=== PATIENT | female | born 1970 | race Caucasian/White ===

== ENCOUNTER 2019-11-23 11:07 | Emergency (ER) | payer MEDICAID ==
[~2019-11-23] VITALS: Ht 157.5 cm; Wt 83.0 kg
[2019-11-23] MEDS ORDERED: POLYVINYL ALCOHOL OPHTH DROPS 15ML LEFTEYE STA (11:54)
[2019-11-23] MEDS ORDERED: PREDNISONE 20MG TABLET PO ONE (12:00)
[2019-11-23] MEDS ORDERED: VALACYCLOVIR HCL 500MG TABLET PO STA (12:08)
[2019-11-23] MEDS ORDERED: IBUPROFEN 600MG TABLET PO ONE (12:15)
[2019-11-23 12:17] LABS: BASOPHILS % 0.9 % (0.0-2.0); EOSINOPHILS % 1.5 % (0.0-5.0); HEMATOCRIT. 42.5 % (36.0-48.0); HEMOGLOBIN. 14.5 g/dL (12.0-16.0); LYMPHOCYTES % 14.4 % (20.0-50.0); MEAN CORPUSCULAR HEMOGLOBIN 28.2 pg (28.0-32.0); MEAN CORPUSCULAR VOLUME 82.5 fL (81.0-99.0); MEAN PLATELET VOLUME 8.9 fl (7.4-10.4); MONOCYTES % 6.1 % (2.0-8.0); NEUTROPHILS % 77.1 % (40.0-76.0); PLATELET 273 x1000/uL (130-400); RED BLOOD CELL COUNT 5.15 mill/uL (4.2-5.4); RED CELL DISTRIBUTION WIDTH 14.5 % (11.6-14.6)
[2019-11-23 12:24] LABS: CHLORIDE 107 mEq/L (98-107)
[2019-11-23 12:28] LABS: HCG SCREEN NEGATIVE
[2019-11-23 14:04] VITALS: BP 152/76
== END 2019-11-23 14:07 | disposition home or self-care (01) ==
LOC: ER 11:07
DX: G51.0 Bell's palsy (principal); Z98.890 Other specified postprocedural states
CPT/HCPCS: 36415; 80053; 82962; 84703; 85025; 99284; J7512

== ENCOUNTER 2024-04-17 08:56 | Emergency (ER) | payer MEDICAID ==
[~2024-04-17] VITALS: Ht 152.4 cm; Wt 84.0 kg
[2024-04-17 09:03] VITALS: O2SAT 97
[2024-04-17 11:10] LABS: CLARITY URINE TURBID (CLEAR); COLOR URINE YELLOW (YELLOW); GLUCOSE URINE NEGATIVE (NEGATIVE); KETONES URINE NEGATIVE (NEGATIVE); LEUKOCYTE ESTERASE URINE 3+ (NEGATIVE); NITRITE URINE POSITIVE (NEGATIVE); OCCULT BLOOD URINE 2+ (NEGATIVE); PROTEIN URINE 2+ (NEGATIVE); SPECIFIC GRAVITY URINE 1.011 (1.005-1.030); UROBILINOGEN URINE 0.2 E.U./dL (0.2-1.0)
[2024-04-17] MEDS ORDERED: IBUP-1523 MT (11:54)
[2024-04-17] MEDS ORDERED: NITR-87 MT (11:54)
[2024-04-17] MEDS ORDERED: ACET-2708 MT (11:54)
[2024-04-17 12:32] VITALS: BP 148/84; PULSE 90; RESP 18; TEMP 37.05852; O2SAT 97
[2024-04-17 12:34] LABS: BACTERIA URINE 4+; SQUAMOUS EPITHELIAL CELL URINE 1+ /lpf (RARE/1+); WBC URINE TNTC /hpf (0-2)
== END 2024-04-17 12:31 | disposition home or self-care (01) ==
LOC: ER 08:56
DX: N39.0 Urinary tract infection, site not specified (principal)
CPT/HCPCS: 81003; 81025; 87077; 87186; 99283